=== PATIENT | female | born 1985 | race Caucasian/White ===

== ENCOUNTER 2019-11-28 17:45 | Emergency (ER) | payer MEDICAID ==
--- NOTE | 2019-11-28 18:33 | EDM.PDOC ---
<Ricky Denny - Last Filed: 11/28/19 18:38> ED HPI GENERAL MEDICAL PROBLEM - General Chief Complaint: Gastrointestinal Problem Stated Complaint: FLU, PAIN IN STOMACH Time Seen by Provider: 11/28/19 18:25 Source of Information: Reports: Patient, RN, RN Notes Reviewed History Limitations: Reports: No Limitations - History of Present Illness INITIAL COMMENTS - FREE TEXT/NARRATIVE: Patient presents to ER with complaints of epigastric abdominal pain, nausea/ vomiting and diarrhea that started about an hour after eating [place] food. She took a nap after she ate and woke up with severe epigastric pain and proceeded to vomit. She states that she vomited 7 separate times and became sweaty and hot after each episode. She states she passed out while on the toilet because she woke up and she was in the tub next to the toilet. She states she has had gallbladder issues in the past but it has never been worked up. Before today she has had no pain, N/V, diarrhea or fever. She reports hitting her head when she passed out and hit the back of her head but no bleeding present. Patient is still having abdominal pain and still nauseas but feeling better then when the episodes started. Onset: Today Duration: Constant Location: Reports: Abdomen Quality: Reports: Ache, Stabbing Severity: Moderate Improves with: Reports: None Worsens with: Reports: None Associated Symptoms: Reports: Headaches, Nausea/Vomiting. Denies: Chest Pain, Cough, cough w sputum, Fever/Chills, Loss of Appetite, Shortness of Breath, Weakness Abdominal Pain Score (Numeric/FACES): 7 - Related Data Allergies Allergy/AdvReac Type Severity Reaction Status Date / Time No Known Allergies Allergy Verified 11/28/19 18:14 Home Meds: Home Meds . [Unable to Verify Home Med List] 11/28/19 [History] Past Medical History HEENT History: Reports: None Cardiovascular History: Reports: None Respiratory History: Reports: None Gastrointestinal History: Reports: None Genitourinary History: Reports: None [employer]ER History: Reports: Musculoskeletal History: Reports: None Neurological History: Reports: None Psychiatric History: Reports: Anxiety, Depression Endocrine/Metabolic History: Reports: None Hematologic History: Reports: None Immunologic History: Reports: None Oncologic (Cancer) History: Reports: None Dermatologic History: Reports: None - Infectious Disease History Infectious Disease History: Reports: Chicken Pox - Past Surgical History Head Surgeries/Procedures: Reports: None Social & Family History - Family History Family Medical History: Noncontributory - Tobacco Use Smoking Status *Q: Current Every Day Smoker Years of Tobacco use: 10 Packs/Tins Daily: 0.5 - Caffeine Use Caffeine Use: Reports: Coffee - Recreational Drug Use Recreational Drug Use: No ED ROS GENERAL - Review of Systems Review Of Systems: Comprehensive ROS is negative, except as noted in HPI. ED EXAM, GI/ABD - Physical Exam Exam: See Below Exam Limited By: No Limitations General Appearance: Alert, WD/WN, No Apparent Distress Respiratory/Chest: No Respiratory Distress, Lungs Clear, Normal Breath Sounds, No Accessory Muscle Use, Chest Non-Tender Cardiovascular: Normal Peripheral Pulses, Regular Rate, Rhythm, No Edema, No Gallop, No JVD, No Murmur, No Rub GI/Abdominal Exam: Normal Bowel Sounds, Soft, No Distention, No Abnormal Bruit, Pelvis Stable, Guarding (RUQ), Tender (epigastric and RUQ tenderness with palpation). No: Rigid, Rebound (Female) Exam: Deferred Rectal (Female) Exam: Deferred Back Exam: Normal Inspection, Full Range of Motion, NT Course - Vital Signs Last Recorded V/S: Last Vital Signs Temp 98.2 F 11/28/19 18:07 Pulse 85 11/28/19 18:07 Resp 18 11/28/19 18:07 BP 120/68 11/28/19 18:07 Pulse Ox 99 11/28/19 18:07 - Orders/Labs/Meds Orders: Active Orders 24 hr Category Date Time Status EKG 12 Lead [EKG Documentation Completion] [RC] STAT Care 11/28/19 18:36 Active Labs: Laboratory Tests 11/28/19 11/28/19 Range/Units 18:49 18:49 WBC 8.7 (5.0-10.0) 10^3/uL RBC 4.73 (4.2-5.4) 10^6/uL Hgb 13.8 (12.0-16.0) g/dL Hct 42.0 (37.0-47.0) % MCV 88.8 (80-100) fL MCH 29.2 (27.0-34.0) pg MCHC 32.9 L (33.0-35.0) g/dL Plt Count 245 (150-450) 10^3/uL Neut % (Auto) 77.6 H (42.2-75.2) % Lymph % (Auto) 14.3 L (20.5-50.1) % [place] % (Auto) 7.0 (2-8) % Eos % (Auto) 0.8 L (1.0-3.0) % Baso % (Auto) 0.3 (0.0-1.0) % Sodium 137 (135-145) mmol/L Potassium 3.7 (3.6-5.0) mmol/L Chloride 106 (101-111) mmol/L Carbon Dioxide 26.0 (21.0-31.0) mmol/L Anion Gap 8.7 BUN 10 (7-18) mg/dL Creatinine 0.5 L (0.6-1.3) mg/dL Est Cr Clr Drug Dosing 174.68 mL/min Estimated GFR (MDRD) > 60 BUN/Creatinine Ratio 20.00 Glucose 78 (74-105) mg/dL Calcium 8.9 (8.4-10.2) mg/dl Total Bilirubin 0.6 (0.2-1.0) mg/dL AST 26 (10-42) IU/L ALT 34 (10-60) IU/L Alkaline Phosphatase 68 (42-121) IU/L Troponin I 0.02 (0.00-0.02) ng/ml Total Protein 7.6 (6.7-8.2) g/dl Albumin 3.6 (3.2-5.5) g/dl Globulin 4.0 Albumin/Globulin Ratio 0.90 Amylase 71 (28-100) U/L Lipase 35 (22-51) U/L Departure - Departure Disposition: Home, Self-Care 01 Clinical Impression: Gastroenteritis, Vomiting, Diarrhea - Discharge Information Instructions: Viral Gastroenteritis, Adult, [id number], Food Choices to Help Relieve Diarrhea, Adult, Nausea and Vomiting, Adult, [id number], Abdominal Pain, Adult, [id number], Diarrhea, Adult, [id number] Forms: ED Department Discharge Additional Instructions: Small amounts of fluids frequently Clear liquids (jello, water, apple juice, broth) until feeling better Advance diet as tolerated Follow up with your primary care facility Return to ER with any worsening of symptoms Sepsis Event Note - Evaluation Sepsis Screening Result: No Definite Risk - Focused Exam Vital Signs: Vital Signs Temp Pulse Resp BP Pulse Ox 11/28/19 18:07 98.2 F 85 18 120/68 99 Date Exam was Performed: 11/28/19 Time Exam was Performed: 18:38 <Thania Lopez - Last Filed: 11/28/19 19:42> Course - Re-Assessments/Exams Free Text/Narrative Re-Assessment/Exam: 11/28/19 19:42 I personally performed or re-performed the physical examination and medical decision making. I have verified all student documentation or findings, including history, physical exam and/or medical decision making. Departure - Departure Time of Disposition: 19:37 Condition: Fair - Discharge Information *PRESCRIPTION DRUG MONITORING PROGRAM REVIEWED*: No *COPY OF PRESCRIPTION DRUG MONITORING REPORT IN PATIENT MURALI: No Sepsis Event Note - Focused Exam Date Exam was Performed: 11/28/19 Time Exam was Performed: 19:42
[2019-11-28 19:18] LABS: ANION GAP 8.7; CHLORIDE,CL 106 mmol/L (101-111); SODIUM,NA 137 mmol/L (135-145)
== END 2019-11-28 19:46 | disposition home or self-care (01) ==
LOC: DL.ED 17:45
DX: K52.9 Noninfective gastroenteritis and colitis, unspecified (principal); F17.210 Nicotine dependence, cigarettes, uncomplicated
CPT/HCPCS: 36415; 80053; 82150; 83690; 84484; 85025; 99284-25

== ENCOUNTER 2021-08-28 18:53 | Emergency (ER) | payer MEDICAID ==
[2021-08-28] MEDS ORDERED: Ketorolac 30 MG/ML SDV IM ONE (19:31)
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
--- NOTE | 2021-08-28 20:35 | CR ---
PROCEDURE INFORMATION: Exam: XR Chest Exam date and time: 08/28/2021 8:18 PM Age: 36 years old Clinical indication: Other: Chest pain; Additional info: Pneumomediastinum TECHNIQUE: Imaging protocol: XR of the chest. Views: 2 views. COMPARISON: No relevant prior studies available. FINDINGS: Lungs: Mild linear opacities over the left base. Pleural spaces: Unremarkable. No pleural effusion. No pneumothorax. Heart/Mediastinum: Unremarkable. No cardiomegaly. Bones/joints: Unremarkable. IMPRESSION: 1. Mild linear opacities over the left base are favored to represent atelectasis. 2. No evidence of pneumomediastinum.
== END 2021-08-28 20:30 | disposition left against medical advice (07) ==
LOC: DL.ED 18:53
DX: S22.42XA Multiple fractures of ribs, left side, initial encounter for closed fracture (principal); V86.92XA Unspecified occupant of snowmobile injured in nontraffic accident, initial encounter
CPT/HCPCS: 71046; 96372; 99284-25; J1885